=== PATIENT | female | born 1945 | race Caucasian/White ===

== ENCOUNTER 2020-04-11 10:45 | Observation (INO) ==
[2020-04-11 11:21] LABS: ABS Lymphocytes 0.6 10^3/ul (1.0-4.8); ABS Monocytes 0.5 10^3/ul (0-0.8); Eosinophil % 0.3 %; Hematocrit 34 % (35-47); Hemoglobin 11.4 g/dL (12.0-16.0); Lymphocyte % 9.5 %; Mean Corpuscular HGB Conc 33 g/dL (31-36); Mean Corpuscular Hemoglobin 28 pg (27-31); Mean Corpuscular Volume 83 fL (80-97); Mean Platelet Volume 9.6 fL (7.4-10.4); Platelet Count 256 10^3/uL (150-450); Red Cell Distribution Width 16 % (10-15); White Blood Count 6.6 10^3/uL (3.5-10.8)
[2020-04-11 11:40] LABS: ALT 11 U/L (7-52); AST 24 U/L (13-39); Albumin 3.8 g/dL (3.2-5.2); Albumin/Globulin Ratio 1.2 (1-3); Alkaline Phosphatase 131 U/L (34-104); Anion Gap 6 mmol/L (2-11); BUN/Creatinine Ratio 32.5 (8-20); Blood Urea Nitrogen 74 mg/dL (6-24); CO2 Carbon Dioxide 33 mmol/L (22-32); Calcium 9.8 mg/dL (8.6-10.3); Chloride 99 mmol/L (101-111); EGFR African American 25.3 (>60); EGFR Non-African American 20.9 (>60); Globulin 3.1 g/dL (2-4); Glucose 213 mg/dL (70-100); Potassium 3.7 mmol/L (3.5-5.0); Sodium 138 mmol/L (135-145); Total Protein 6.9 g/dL (6.4-8.9)
[2020-04-11 11:48] LABS: Troponin I 0.07 ng/mL (<0.03)
[2020-04-11 17:24] LABS: Troponin I 0.07 ng/mL (<0.03)
[2020-04-11 19:59] LABS: Troponin I 0.07 ng/mL (<0.03)
[2020-04-11] MEDS ORDERED: CMC:Pravastatin 20 mg TAB (NF) PO SCH (21:00)
[2020-04-11] MEDS ORDERED: Lidocaine Patch REMOVE PATCH PATCH OFF SCH (21:00)
[2020-04-11] MEDS: CMC:Ticagrelor 60 mg TAB (NF) PO SCH (21:13)
[2020-04-11] MEDS: Lidocaine PATCH 5% PATCH TRANSDERM PRN ×2 (21:19→21:21)
[2020-04-12] MEDS ORDERED: Analgesic BALM 114 GM TOPICAL PRN (00:13)
[2020-04-12 06:31] LABS: BUN/Creatinine Ratio 38.3 (8-20); Calcium 9.5 mg/dL (8.6-10.3); EGFR African American 36.3 (>60); Potassium 3.3 mmol/L (3.5-5.0)
[2020-04-12] MEDS: CMC:Ticagrelor 60 mg TAB (NF) PO SCH (08:06)
[2020-04-12] MEDS ORDERED: Pregabalin 100 mg CAP (*) PO SCH ×3 (09:00→21:00)
[2020-04-12] MEDS ORDERED: Pregabalin 50 mg CAP (*) PO SCH (09:00)
[2020-04-12] MEDS ORDERED: Aspirin EC 81 mg TAB.EC (enteric coated) PO SCH (09:00)
[2020-04-12 11:28] VITALS: BP 127/49
== END 2020-04-12 13:01 | disposition home or self-care (01) ==
LOC: ED 10:45 → MEDTELE 10:45
PROVIDERS: ADMIT Nurse Practitioner Acute Care; ATTEND Internal Medicine